=== PATIENT | male | born 1945 | race American Indian/Alaskan Native ===

== ENCOUNTER 2016-09-04 13:49 | Emergency (ER) | payer SELFPAY ==
--- NOTE | 2016-09-04 14:53 | Emergency Department Report ---
ED Syncope HPI - General Chief Complaint: Syncope Stated Complaint: LOSS OF CONSCIOUSNESS Time Seen by Provider: 09/04/16 14:15 Source: patient, family Exam Limitations: no limitations - History of Present Illness Initial Comments: 71-year-old male with a past medical history hypertension, hyperlipidemia, CABG 3 presents to the hospital complaints of syncopal episode after giving 1 pint of blood. Patient was finishing up his blood drawn when he complained of feeling lightheaded. Patient then had a syncopal episode for approximately 2 minutes. Blood pressure 70/60 upon EMS arrival to the scene. To the hospital patient had a second unresponsive episode. Patient received 600 mL bolus of normal saline prior to arrival. Heart rate 37 and blood sugar 110 prior to arrival. Patient denies headache, chest pain, shortness of breath, vomiting, diarrhea, melena, or hematochezia. He did not have anything to eat or drink this morning has been out in the hot sun. reports that he had one episode of vomiting the past 2 nights. Patient denies any nausea at this time. Patient gave blood was many years ago. Patient family do not have patient's current medication list but think he is on a beta prisca/metoprolol. Patient also takes 81 mg aspirin daily and does not take any other blood thinners. Optometric Technician is [facility] - Related Data Allergies/Adverse Reactions: Allergies No Known Allergies Allergy (Unverified 09/04/16 14:02) ED Review of Systems ROS: Stated complaint: LOSS OF CONSCIOUSNESS Other details as noted in HPI Comment: All other systems reviewed and negative Other: Constitutional: No fevers chills Eyes: No eye pain visual changes ENT: No ear pain or throat pain Neck: Denies pain Respiratory: Denies cough wheezing shortness of breath Cardiovascular: Denies chest pain, palpitations GI: Denies abdominal pain, nausea, vomiting, diarrhea : Denies dysuria Musculoskeletal: Denies back pain Skin: Denies rash, lesions, erythema Neurologic: Denies headache, numbness, weakness Psychiatric: Denies suicidal ideation, hallucinations ED Past Medical Hx - Past Medical History Previous Medical History?: Yes Hx Hypertension: Yes Additional medical history: hyperlipedemia - Surgical History Past Surgical History?: Yes Additional Surgical History: 3 CABG - Social History Smoking Status: Never Smoker ED Physical Exam - General Limitations: No Limitations - Other Other exam information: General: No limitations, patient is alert in no acute distress Head exam: Atraumatic, normocephalic Eyes exam: Normal appearance ENT: Moist mucous membrane, hard of hearing positive hearing aide Neck exam: Normal inspection, full range of motion, left EJ placed by EMS Respiratory exam: Clear to auscultation bilateral, no wheezes, rales, crackles Cardiovascular: Normal rate and rhythm, normal heart sounds Abdomen: Soft, nondistended, and nontender, with normal bowel sounds, no rebound, or guarding Extremity: Full range of motion normal inspection no deformity Back: Normal Inspection, full range of motion, no tenderness Neurologic: Alert, oriented x3, cranial nerves intact, no motor or sensory deficit Psychiatric: normal affect, normal mood Skin: Warm, dry, intact ED Course Vital Signs 09/04/16 09/04/16 13:53 15:25 Temperature 97.6 F 97.5 F L Pulse Rate 44 L 53 L Respiratory 16 16 Rate Blood Pressure 108/58 Blood Pressure 115/59 [Left] O2 Sat by Pulse 100 100 Oximetry - Reevaluation(s) Reevaluation #1: 09/04/16 17:07 Patient received additional 1 L of fluid in the ED after arrival based on some mild decrease in systolic pressure with standing ED Medical Decision Making - Lab Data Result diagrams: 09/04/16 14:36 09/04/16 14:36 Lab Results 09/04/16 09/04/16 09/04/16 Range/Units 14:36 14:36 14:36 WBC 5.2 (4.5-11.0) K/mm3 RBC 3.84 (3.65-5.03) M/mm3 Hgb 11.6 L (11.8-15.2) gm/dl Hct 34.7 L (35.5-45.6) % MCV 90 (84-94) fl MCH 30 (28-32) pg MCHC 33 (32-34) % RDW 12.5 L (13.2-15.2) % Plt Count 126 L (140-440) K/mm3 Lymph % (Auto) 16.7 (13.4-35.0) % Ogle % (Auto) 6.6 (0.0-7.3) % Eos % (Auto) 0.9 (0.0-4.3) % Baso % (Auto) 0.6 (0.0-1.8) % Lymph # 0.9 L (1.2-5.4) K/mm3 Ogle # 0.3 (0.0-0.8) K/mm3 Eos # 0.0 (0.0-0.4) K/mm3 Baso # 0.0 (0.0-0.1) K/mm3 Seg Neutrophils % 75.2 H (40.0-70.0) % Seg Neutrophils # 3.9 (1.8-7.7) K/mm3 Sodium (137-145) mmol/L Potassium (3.6-5.0) mmol/L Chloride (98-107) mmol/L Carbon Dioxide (22-30) mmol/L Anion Gap mmol/L BUN (9-20) mg/dL Creatinine (0.8-1.5) mg/dL Estimated GFR ml/min BUN/Creatinine Ratio % Glucose (75-100) mg/dL Calcium (8.4-10.2) mg/dL Magnesium (1.7-2.3) mg/dL Total Bilirubin (0.1-1.2) mg/dL AST (5-40) units/L ALT (7-56) units/L Alkaline Phosphatase (35-129) units/L Troponin T < 0.010 (0.00-0.029) ng/mL Total Protein (6.3-8.2) g/dL Albumin (3.9-5) g/dL Albumin/Globulin Ratio % TSH (0.270-4.200) mlU/mL Free T4 (0.76-1.46) ng/dL Blood Type A POSITIVE Antibody Screen TNR JANNETTE Antibody Screen Negative 09/04/16 09/04/16 09/04/16 Range/Units 14:36 14:36 14:36 WBC (4.5-11.0) K/mm3 RBC (3.65-5.03) M/mm3 Hgb (11.8-15.2) gm/dl Hct (35.5-45.6) % MCV (84-94) fl MCH (28-32) pg MCHC (32-34) % RDW (13.2-15.2) % Plt Count (140-440) K/mm3 Lymph % (Auto) (13.4-35.0) % Ogle % (Auto) (0.0-7.3) % Eos % (Auto) (0.0-4.3) % Baso % (Auto) (0.0-1.8) % Lymph # (1.2-5.4) K/mm3 Ogle # (0.0-0.8) K/mm3 Eos # (0.0-0.4) K/mm3 Baso # (0.0-0.1) K/mm3 Seg Neutrophils % (40.0-70.0) % Seg Neutrophils # (1.8-7.7) K/mm3 Sodium 143 (137-145) mmol/L Potassium 4.4 (3.6-5.0) mmol/L Chloride 105.8 (98-107) mmol/L Carbon Dioxide 26 (22-30) mmol/L Anion Gap 16 mmol/L BUN 19 (9-20) mg/dL Creatinine 1.5 (0.8-1.5) mg/dL Estimated GFR 56 ml/min BUN/Creatinine Ratio 12.66 % Glucose 113 H (75-100) mg/dL Calcium 8.5 (8.4-10.2) mg/dL Magnesium 2.10 (1.7-2.3) mg/dL Total Bilirubin 0.70 (0.1-1.2) mg/dL AST 17 (5-40) units/L ALT 10 (7-56) units/L Alkaline Phosphatase 42 (35-129) units/L Troponin T (0.00-0.029) ng/mL Total Protein 6.1 L (6.3-8.2) g/dL Albumin 3.5 L (3.9-5) g/dL Albumin/Globulin Ratio 1.3 % TSH 2.580 (0.270-4.200) mlU/mL Free T4 1.08 (0.76-1.46) ng/dL Blood Type Antibody Screen JANNETTE Antibody Screen - EKG Data -: EKG Interpreted by Me (sinus bradycardia rate 40 LAE, LVH) - EKG Data When compared to previous EKG there are: previous EKG unavailable - Medical Decision Making During ED stay heart rate ranged to the 50s to 60s. Blood pressure systolic remained above 100. Given patient's risk factors and cardiac history admission and observation will be recommended. Requested for to obtain patient's list of medications for evaluation - Differential Diagnosis volume depletion depletion, vasovagal, anemia, arrhythmia, hypothyroidism Critical Care Time: No Critical care attestation.: If time is entered above; I have spent that time in minutes in the direct care of this critically ill patient, excluding procedure time. ED Disposition Clinical Impression: Syncope, S/P CABG x 3, Bradycardia Disposition: OP ADMIT IP TO THIS HOSP Is pt being admited?: Yes Condition: Stable Time of Disposition: 17:14 (Dr Gutiérrez/hosp)
[2016-09-04 14:58] LABS: Basophils % (Auto) 0.6 % (0.0-1.8); Eosinophils % (Auto) 0.9 % (0.0-4.3); Hematocrit 34.7 % (35.5-45.6); Hemoglobin 11.6 gm/dl (11.8-15.2); Mean Corpuscular HGB Conc 33 % (32-34); Mean Corpuscular Hemoglobin 30 pg (28-32); Mean Corpuscular Volume 90 fl (84-94); Platelet Count 126 K/mm3 (140-440); Red Blood Count 3.84 M/mm3 (3.65-5.03); Red Cell Distribution Width 12.5 % (13.2-15.2); White Blood Count 5.2 K/mm3 (4.5-11.0)
[2016-09-04 15:41] LABS: Albumin 3.5 g/dL (3.9-5); Albumin/Globulin Ratio 1.3 %; BUN/Creatinine Ratio 12.66; Bilirubin,Total 0.7 mg/dL (0.1-1.2); Calcium 8.5 mg/dL (8.4-10.2); Chloride 105.8 mmol/L (98-107); Potassium 4.4 mmol/L (3.6-5.0); Total Protein 6.1 g/dL (6.3-8.2)
[2016-09-04] MEDS ORDERED: NACL 0.9% 1000 ML 1,000 ML IV ONE (15:44)
--- NOTE | 2016-09-04 17:49 | History and Physical Report ---
Medications and Allergies Allergies Allergy/AdvReac Type Severity Reaction Status Date / Time No Known Allergies Allergy Unverified 09/04/16 14:02 Exam - Constitutional Vitals: Temp Pulse Resp BP Pulse Ox 97.5 F L 53 L 16 115/59 100 09/04/16 15:25 09/04/16 15:25 09/04/16 15:25 09/04/16 15:25 09/04/16 15:25 Results - Labs CBC & Chem 7: 09/04/16 14:36 09/04/16 14:36 Labs: Abnormal lab results 09/04/16 09/04/16 Range/Units 14:36 14:36 Hgb 11.6 L (11.8-15.2) gm/dl Hct 34.7 L (35.5-45.6) % RDW 12.5 L (13.2-15.2) % Plt Count 126 L (140-440) K/mm3 Lymph # 0.9 L (1.2-5.4) K/mm3 Seg Neutrophils % 75.2 H (40.0-70.0) % Glucose 113 H (75-100) mg/dL Total Protein 6.1 L (6.3-8.2) g/dL Albumin 3.5 L (3.9-5) g/dL
[2016-09-04] MEDS ORDERED: NACL ONE (19:51)
--- NOTE | 2016-09-04 20:31 | Cat Scan Report ---
FINAL REPORT EXAM: CT ANGIO CHEST HISTORY: dypsnea TECHNIQUE: High-resolution helical axial images were obtained of the chest during intravenous administration of iodinated contrast. Images are reconstructed in the sagittal and coronal planes. PRIORS: None. FINDINGS: There is no evidence of pulmonary embolism, the pulmonary arteries opacify normally. There is coronary artery atherosclerotic calcification mostly in the LAD. Otherwise, the heart appears normal. Thoracic aorta appears normal. The interstitial markings in the bilateral lung bases are mildly prominent. There is no focal consolidation or pleural effusion. Images through the upper abdomen show numerous small stones in the gallbladder. The gallbladder was not completely included in the scan range. There is thoracic spondylosis with multiple bridging anterior syndesmophytes. IMPRESSION: 1. No evidence of pulmonary embolism. 2. Mild prominence of the interstitial markings in the bilateral lung bases probably due to mild dependent pulmonary edema. 3. Coronary artery atherosclerotic disease 4. Cholelithiasis 5. Spondylosis of the thoracic spine consistent with DISH
[2016-09-04 21:03] VITALS: BP 106/87
--- NOTE | 2016-09-05 09:17 | Consultation ---
History of Present Illness - Reason for Consult Consult date: 09/04/16 Requesting physician: ALEXANDRU GREENE - History of Present Illness 71 YO male with HTN, HLD, CAD S/P CABG presents to ED for evaluation. Pt states that he passed out after giving 1 pint of blood. Patient was finishing up his blood draw when he complained of feeling lightheaded. Patient then had a syncopal episode for approximately 2 minutes. Blood pressure 70/60 upon EMS arrival to the scene. PT treated with IVF with resolution of symptoms. Pt seen and evaluated in ED. Pt denies fever, chills, CP,Palpitaitons, NVD, difficulty breathing, productive cough, or recent ill contacts. Past History Past Medical History: CAD, hypertension Past Surgical History: CABG Social history: , lives with family. denies: smoking, alcohol abuse, prescription drug abuse, IV drug use Family history: hypertension Medications and Allergies Allergies Allergy/AdvReac Type Severity Reaction Status Date / Time No Known Allergies Allergy Unverified 09/04/16 14:02 Review of Systems All systems: negative Constitutional: other (syncope) Exam - Constitutional Vitals: Temp Pulse Resp BP Pulse Ox 97.7 F 69 18 106/87 100 09/04/16 18:23 09/04/16 21:01 09/04/16 21:01 09/04/16 21:01 09/04/16 21:01 General appearance: Present: no acute distress, well-nourished - EENT Eyes: Present: PERRL ENT: hearing intact, clear oral mucosa - Neck Neck: Present: supple, normal ROM - Respiratory Respiratory effort: normal Respiratory: bilateral: CTA - Cardiovascular Heart Sounds: Present: S1 & S2. Absent: rub, click - Extremities Extremities: pulses symmetrical, No edema Peripheral Pulses: within normal limits - Abdominal General gastrointestinal: Present: soft, non-tender, non-distended, normal bowel sounds Male genitourinary: Present: normal - Integumentary Integumentary: Present: clear, warm, dry - Musculoskeletal Musculoskeletal: gait normal, strength equal bilaterally - Psychiatric Psychiatric: appropriate mood/affect, intact judgment & insight - Neurologic Neurologic: CNII-XII intact, moves all extremities Results - Labs CBC & Chem 7: 09/04/16 14:36 09/04/16 14:36 Labs: Abnormal lab results 09/04/16 09/04/16 09/04/16 Range/Units 14:36 14:36 18:11 Hgb 11.6 L (11.8-15.2) gm/dl Hct 34.7 L (35.5-45.6) % RDW 12.5 L (13.2-15.2) % Plt Count 126 L (140-440) K/mm3 Lymph # 0.9 L (1.2-5.4) K/mm3 Seg Neutrophils % 75.2 H (40.0-70.0) % D-Dimer 287.68 H (0-234) ng/mlDDU Glucose 113 H (75-100) mg/dL Total Protein 6.1 L (6.3-8.2) g/dL Albumin 3.5 L (3.9-5) g/dL Assessment and Plan - Patient Problems (1) Vasovagal syncope Status: Acute Plan to address problem: Serial cardiac enzymes, ekg, ddimer, telemetry, CTA chest. Pt discharged home after negative workup, and instructed to f/u pcp withing 1 wk for f/u care (2) Syncope Status: Acute Qualifiers: Syncope type: S Encounter type: E (3) HTN (hypertension) Status: Acute Qualifiers: Hypertension type: H Plan to address problem: f/u pcp within 3 days with blood pressure log (4) HLD (hyperlipidemia) Status: Acute Qualifiers: Hyperlipidemia type: H Plan to address problem: resume home medication (5) CAD (coronary artery disease) Status: Acute Qualifiers: Coronary Disease-Associated Artery/Lesion type: C [place] vs. transplanted heart: N Associated angina: A Plan to address problem: stable, no angina at this time,
== END 2016-09-04 21:01 | disposition admitted as inpatient to this hospital (09) ==
LOC: ED 13:49
DX: R55 Syncope and collapse (principal); R00.1 Bradycardia, unspecified; Z95.1 Presence of aortocoronary bypass graft; I10 Essential (primary) hypertension; E78.5 Hyperlipidemia, unspecified
CPT/HCPCS: 36415; 71275; 80053; 83735; 84439; 84443; 84484; 85025; 85379; 86850; 86900; 86901; 93005; 93010; 96360; 99285; J7030; Q9967